=== PATIENT | male | born 1960 | race Caucasian/White ===

== ENCOUNTER 2017-09-28 06:25 | Day surgery (SDC) | payer MEDICARE, MEDICAID ==
[2017-09-25 09:41] VITALS: BMI 32.8
[2017-09-28] MEDS ORDERED: PROPOFOL 20 ML ONE (07:00)
[2017-09-28] MEDS ORDERED: PROPOFOL 200 MG/20 ML VIAL ONE (13:57)
--- NOTE | 2017-09-29 15:18 | OP ---
DATE OF PROCEDURE: 09/28/2017 PREOPERATIVE DIAGNOSIS: Atrial fibrillation. POSTOPERATIVE DIAGNOSIS: Sinus rhythm. PROCEDURE: Successful synchronized cardioversion. DESCRIPTION OF PROCEDURE: Conscious sedation was performed with propofol. Anesthesia was present. The patient underwent successful synchronized cardioversion at 150 followed by 200 joules. IMPRESSION: Successful synchronized cardioversion.
== END 2017-09-28 08:47 | disposition home or self-care (01) ==
LOC: CCL 06:25
PROVIDERS: ATTEND Internal Medicine Cardiovascular Disease
PROC: 5A2204Z Restoration of Cardiac Rhythm, Single (ICD-10-PCS; principal; 2017-09-28)
DX: I48.1 Persistent atrial fibrillation (principal); I10 Essential (primary) hypertension; Z79.899 Other long term (current) drug therapy; Z79.01 Long term (current) use of anticoagulants
CPT/HCPCS: 92960; J2704

== ENCOUNTER 2018-02-16 09:56 | Day surgery (SDC) | payer MEDICARE, MEDICAID ==
[2018-02-15 10:40] VITALS: BMI 32.5
[2018-02-16] MEDS ORDERED: Ketorolac Tromethamine 30 MG/ML VIAL ONE (11:22)
[2018-02-16] MEDS ORDERED: CEFAZOLIN/Water 2 GM/20 ML SYRINGE ONE (11:22)
[2018-02-16 12:04] LABS: #Eosinphils 0.1 thou/uL (0.0-0.7); #Lymphocytes 0.8 thou/uL (1.20-3.40); #Monocytes 0.4 thou/uL (0.11-0.59); #Neutrophils 5.5 thou/uL (1.40-6.50); %Basophils 0.4 % (0.0-1.0); %Eosinophils 1.4 % (0.0-10.0); %Lymphocytes 11.2 % (21.0-51.0); %Monocytes 6.2 % (0.0-10.0); %Neutrophils 80.8 % (42.0-75.0); Hemoglobin 14.1 g/dL (14.0-18.0); Mean Corpuscular HGB CONC 34.7 g/dL (32.0-36.0); Mean Corpuscular Hemoglobin 31.4 pg (27.0-31.0); Mean Corpuscular Volume 90.6 fL (78.0-98.0); Mean Platelet Volume 7.3 fL (7.4-10.4); Platelet Count 159 thou/uL (130-400); RBC Distribution Width 11.6 % (11.5-14.5); Red Blood Cell (RBC) Count 4.49 mill/uL (4.70-6.10); White Blood Cell (WBC) Count 6.8 thou/uL (4.8-10.8)
[2018-02-16 12:13] LABS: Anion Gap 12 mmol/L (10-20); BUN (Urea Nitrogen) 21 mg/dL (8.4-25.7); Calc. Creatinine Clearance 118 mL/min (70-130); Calcium 9.6 mg/dL (7.8-10.44); Carbon Dioxide 27 mmol/L (22-29); Chloride 102 mmol/L (98-107); Estimated GFR-MDRD 80; Glucose 111 mg/dL (70-105); Potassium 4.4 mmol/L (3.5-5.1); Sodium 137 mmol/L (136-145)
[2018-02-16] MEDS ORDERED: Bupivacaine/Epinephrine 0.25% 30 ML VIAL ONE ×2 (13:13→15:32)
[2018-02-16] MEDS ORDERED: Bupivacaine 0.25% HCL 30 ML VIAL ONE (13:13)
[2018-02-16] MEDS ORDERED: Fentanyl 100 MCG/2 ML VIAL ONE (13:28)
--- NOTE | 2018-02-16 17:47 | EKG ---
Test Reason : PREOP Blood Pressure : / mmHG Vent. Rate : 069 BPM Atrial Rate : 069 BPM P-R Int : 172 ms QRS Dur : 098 ms QT Int : 408 ms P-R-T Axes : 072 062 031 degrees QTc Int : 437 ms Normal sinus rhythm Normal ECG No previous ECGs available Confirmed by DR. Clari MORRIS ([id number]) on 02/16/2018 5:47:02 PM Referred By: ZIA Confirmed By:DR. Clari MORRIS
--- NOTE | 2018-02-17 12:48 | OP ---
DATE OF PROCEDURE: 02/16/2018 PREOPERATIVE DIAGNOSIS: Large incarcerated left inguinal hernia with a very large intrascrotal compo nent. POSTOPERATIVE DIAGNOSIS: Large incarcerated left inguinal hernia with a very large intrascrotal comp onent with finding of an incarcerated sliding left inguinal hernia, which incorporated the entirety o f his sigmoid colon within the scrotum. OPERATION PERFORMED: Complex repair of a huge incarcerated sliding left inguinal hernia using an ext ra large mesh patch and plug. SURGEON: Phillip Paz M.D. ANESTHESIA: General endotracheal. INDICATIONS: The patient is a 57-year-old obese white male. He has underlying intellectual disabili ty. It is unknown how long this hernia has been present. He was taken to operating room at this [facility] for repair of the hernia, which I cannot reduce. DESCRIPTION OF OPERATION: Informed consent was obtained. The patient was taken to the operating [facility] where general endotracheal anesthesia was obtained with the patient in supine position. Left groin , scrotum, and genitalia were prepped with ChloraPrep and draped in sterile fashion. Local anestheti c was infiltrated using 0.25% Marcaine with epinephrine and a fairly large oblique left inguinal inci angel was created and dissection was carried through skin and subcutaneous tissue. Dissection was car ried down to the fascia, which was opened parallel to its fibers so as to open the external ring. Th ere was a very large cord with hernia contents protruding through the external ring down into the scr otum. This had clearly been present for a very long time as all tissues were inflamed, thickened, an d adherent to surrounding structures. I carefully dissected down to the hernia sac. Due to the size , I was unable to really dissect around this. I opened the hernia sac transversely. I was able to i dentify the hernia contents, which I then began to reduce out of the scrotum. It then became obvious that this was the entirety of the sigmoid colon with a large loop of colon down within his scrotum. It was densely adherent to all surrounding structures. I had to work to mobilize the sigmoid colon and its mesentery from the spermatic cord contents. I was able to clearly identify the vas deferens and the vascular supply. The testicle reduced out of the scrotum numerous times during the course of the case. After I reduced the adhesions, I was, with significant difficulty, able to eventually red uce the colon back within the peritoneal cavity. At this point, I tried to identify where any remnan t of a hernia sac was in, it was certainly difficult to find any circumferential structure that could be identified and were closed. I mobilized some preperitoneal tissue and again identified the cord structures. It appeared that the hernia had split the vas deferens from the other cord structures qureshi ch that the vas deferens was medial and not really part of the rest of the cord structures. I noneth eless attempted to preserve all cord structures. There was essentially a blowout of the floor of the inguinal canal, and it was challenging to figure out how to repair this. I eventually obtained an extra large mesh plug and secured the apex of this to the apex of preperiton eal tissue that I had used to somewhat close the defect. This was then passed into the preperitoneal space and I secured the plug to surrounding the fascial structures medially, laterally, superiorly, and inferiorly. This was all done with a 2-0 Vicryl suture. I attempted to close the fascia over th e plug medially and laterally due to the size of the defect. I then obtained the mesh patch which was trimmed to appropriate size and placed within the floor of t he inguinal canal. I secured the inferior aspect of this to the shelving edge of the inguinal ligame nt using a running suture of 2-0 Prolene, this was carried out laterally past the internal ring. I s ecured the upper aspect of the mesh to the fascia of the internal oblique with a Prolene suture and t hen the several additional Vicryl sutures to finish secured the mesh in place. The tails were of cou rse approximated around the cord structures laterally. The external oblique aponeurosis was then closed with running suture of 3-0 Vicryl. Remainder of the wound was closed in layers with 3-0 and 4-0 Monocryl and additional local anesthetic was infiltrated during closure. There were no complications. The patient tolerated the procedure well and was take n to recovery room in stable condition. Of note, this operation took over 2 hours due to the complexity of the dissection and repair (in comp arison to its typical 30-minute hernia repair).
== END 2018-02-16 17:22 | disposition home or self-care (01) ==
LOC: SDC 09:56
PROVIDERS: ATTEND Specialist
PROC: 0YU60JZ Supplement Left Inguinal Region with Synthetic Substitute, Open Approach (ICD-10-PCS; principal; 2018-02-16)
DX: K40.30 Unilateral inguinal hernia, with obstruction, without gangrene, not specified as recurrent (principal); I10 Essential (primary) hypertension; I48.91 Unspecified atrial fibrillation; F79 Unspecified intellectual disabilities; E66.9 Obesity, unspecified; Z68.32 Body mass index [BMI] 32.0-32.9, adult; Z79.01 Long term (current) use of anticoagulants; Z79.899 Other long term (current) drug therapy; Z89.411 Acquired absence of right great toe
CPT/HCPCS: 36415; 80048; 85025; 93005; 93010; C1781; J0131; J1885; J3010; S0020

== ENCOUNTER 2018-11-10 05:13 | Outpatient (CLI) | payer MEDICARE, MEDICAID ==
[2018-11-10 11:38] LABS: Hemoglobin 11.2 g/dL (14.0-18.0); Mean Corpuscular HGB CONC 32.4 g/dL (32.0-36.0); Mean Corpuscular Hemoglobin 28.2 pg (27.0-31.0); Mean Corpuscular Volume 86.8 fL (78.0-98.0); Platelet Count 139 thou/uL (130-400); RBC Distribution Width 14.9 % (11.5-14.5); Red Blood Cell (RBC) Count 3.97 mill/uL (4.70-6.10)
[2018-11-10 11:44] LABS: INR-International Normal Ratio 1.3; PTT 36.2 SEC (22.9-36.1); Prothrombin Time 16.3 SEC (12.0-14.7)
[2018-11-10 11:58] LABS: Anion Gap 13 mmol/L (10-20); BUN (Urea Nitrogen) 23 mg/dL (8.4-25.7); Calc. Creatinine Clearance 0 mL/min (70-130); Calcium 9.2 mg/dL (7.8-10.44); Carbon Dioxide 26 mmol/L (22-29); Chloride 107 mmol/L (98-107); Estimated GFR-MDRD 69; Glucose 101 mg/dL (70-105); Potassium 4.5 mmol/L (3.5-5.1); Sodium 141 mmol/L (136-145)
--- NOTE | 2018-11-10 20:29 | EKG ---
Test Reason : Blood Pressure : / mmHG Vent. Rate : 107 BPM Atrial Rate : 098 BPM P-R Int : 000 ms QRS Dur : 078 ms QT Int : 324 ms P-R-T Axes : 000 068 040 degrees QTc Int : 432 ms Atrial fibrillation with rapid ventricular response Abnormal ECG When compared with ECG of 16-FEB-2018 11:08, Atrial fibrillation has replaced Sinus rhythm Vent. rate has increased BY 38 BPM Confirmed by ZURDO ATKINS, SEdelmira ([id number]) on 11/10/2018 8:29:32 PM Referred By: JIM Confirmed By:DR. Bonnie RENNER MD
== END 2018-11-10 05:14 | disposition home or self-care (01) ==
LOC: LABBT 05:13 → EDSTATUS 08:45
PROVIDERS: ATTEND Urology
DX: Z01.818 Encounter for other preprocedural examination (principal); R39.14 Feeling of incomplete bladder emptying; R33.8 Other retention of urine
CPT/HCPCS: 80048; 85027; 85610; 85730; 87077; 87086; 93005; 93010

== ENCOUNTER 2018-11-15 08:04 | Day surgery (SDC) | payer MEDICARE, MEDICAID ==
[2018-11-10 10:46] VITALS: BMI 31.3
[2018-11-15] MEDS ORDERED: Bupivacaine 0.25% HCL 30 ML VIAL ONE (09:09)
[2018-11-15] MEDS ORDERED: cefTRIAXone\\ROCEPHIN 2 GM VIAL ONE (09:26)
[2018-11-15] MEDS ORDERED: Sodium Chloride 0.9% 100 ML ONE (09:26)
[2018-11-15] MEDS ORDERED: Fentanyl 100 MCG/2 ML VIAL ONE (09:37)
--- NOTE | 2018-11-15 15:16 | OP ---
DATE OF PROCEDURE: 11/15/2018 PREOPERATIVE DIAGNOSES: Incomplete emptying, retention, lower urinary tract symptoms. POSTOPERATIVE DIAGNOSES: Incomplete emptying, retention, lower urinary tract symptoms. PROCEDURES PERFORMED: Cystoscopy, placement of suprapubic tube using the Lowsley technique. ANESTHESIA: General with local. ESTIMATED BLOOD LOSS: Minimal. FINDINGS: There were no strictures. There was moderate lateral lobe hypertrophy. There were some small stones in the bladder that removed with a small grasping forceps. There were 1+ trabeculations and catheter-related cystitis to ureteral orifices that were clear. DRAINS PLACED: A 22-Czech Arellano three-way as the suprapubic and 18-Czech 10 mL as a urethral catheter. DESCRIPTION OF PROCEDURE: Obtained written and verbal consent from the patient. After receiving IV antibiotics, he was taken to the operating suite. He was placed in the supine position on the treatment table. PlexiPulses were placed on his lower extremities and turned on. He was given a general anesthetic and oral obturator intubation. He was placed in the dorsal lithotomy position. He was shaved and sterilely prepped and draped. Cystoscopy was performed with a 22-Czech sheath. This was well lubricated, passed under direct vision through the male urethra into the urinary bladder with the help of 30-degree lens of video camera and monitor. The bladder was filled and emptied number of times and pair of flexible graspers were used to remove some small stones. The bladder was again moved with a 30 and the 70-degree lens. The bladder was then filled under about 70 to 80 cm of water pressure until it was completely full and easily palpated. We then infiltrated the skin, two fingerbreadths above the pubic symphysis with a spinal needle and then placed this as we infiltrated through the soft tissues down to the anterior bladder wall, so we could see it coming into the bladder with a 30-degree lens. We then having a good spot jarrett here and made a small skin incision at this site and then removed the cystoscope and passed a well lubricated Lowsley and brought this in underneath the anterior abdominal wall, the site of our spinal needle insertion and cutdown onto this until the typical Lowsley came out through this incision. We then used this to direct 22-Czech Arellano using a couple of silk ties to secure it to the Lowsley, directed it into the bladder. The silk port ends were cut and removed. Balloon was inflated with 30 mL. Cystoscopically, it showed that it was in good position. There was really not much bleeding. It appeared to be draining well. The instruments were removed. A small urethral catheter was placed with 10 mL in the balloon and this drained well also. Both hooked up to individual leg bags. A dressing was placed after we secured the SP tube at the skin site with a 0 silk stitch. He was taken out of dorsal lithotomy position, awakened, extubated, and taken by stretcher to recovery room. Job ID: [id number]
== END 2018-11-15 12:20 | disposition home or self-care (01) ==
LOC: SDC 08:04
PROVIDERS: ATTEND Urology
PROC: 0T9B70Z Drainage of Bladder with Drainage Device, Via Natural or Artificial Opening (ICD-10-PCS; principal; 2018-11-15)
PROC: 0TCB8ZZ Extirpation of Matter from Bladder, Via Natural or Artificial Opening Endoscopic (ICD-10-PCS; 2018-11-15)
DX: N40.1 Benign prostatic hyperplasia with lower urinary tract symptoms (principal); R33.8 Other retention of urine; R39.14 Feeling of incomplete bladder emptying
CPT/HCPCS: J0696; J3010; J3490; S0020

== ENCOUNTER 2019-03-14 10:49 | Emergency (ER) | payer MEDICARE, MEDICAID | END 2019-03-14 12:00 | disposition home or self-care (01) | LOC: ERS 10:49 | DX: T83.031A Leakage of indwelling urethral catheter, initial encounter (principal); R33.9 Retention of urine, unspecified; I48.91 Unspecified atrial fibrillation; F41.9 Anxiety disorder, unspecified | CPT/HCPCS: 51702; 87086 ==

== ENCOUNTER 2020-03-15 17:20 | Emergency (ER) | payer MEDICARE, MEDICAID ==
[2020-03-15] MEDS ORDERED: Clotrimazole 1% Cream 15 GM TUBE TOP SCH (18:30)
[2020-03-15 19:32] LABS: Bacteria/HPF 4+ HPF (None Seen); Bilirubin Negative (Negative); Blood, Urine 3+ (Negative); Clarity Turbid (Clear); Glucose, Urine (Dipstick) 100 mg/dL (Negative); Ketone, Urine Negative (Negative); Leukocyte 500 Leu/uL (Negative); Nitrite Negative (Negative); Protein, Urine (Dipstick) 300 mg/dL (Neg-Trace); RBC/HPF Greater than 50 HPF (0-3); Specific Gravity, Urine 1.026 (1.002-1.036); Squamous Epithelial 0-3 HPF (0-3); Urobilinogen Normal mg/dL (Less than 2); WBC/HPF Greater than 50 HPF (0-3)
[2020-03-15] MEDS ORDERED: Ciprofloxacin 500 MG TAB ONE (19:33)
== END 2020-03-15 21:18 | disposition home or self-care (01) ==
LOC: ERS 17:20
DX: T83.091A Other mechanical complication of indwelling urethral catheter, initial encounter (principal); N30.00 Acute cystitis without hematuria; K21.9 Gastro-esophageal reflux disease without esophagitis; N40.0 Benign prostatic hyperplasia without lower urinary tract symptoms; E78.00 Pure hypercholesterolemia, unspecified; E78.5 Hyperlipidemia, unspecified; I10 Essential (primary) hypertension; I48.91 Unspecified atrial fibrillation; F41.9 Anxiety disorder, unspecified; Z79.01 Long term (current) use of anticoagulants; Z79.899 Other long term (current) drug therapy
CPT/HCPCS: 51702; 81003; 81015; 94760

== ENCOUNTER 2021-04-09 12:01 | Outpatient (CLI) | payer MEDICARE, MEDICAID | END 2021-04-09 12:02 | disposition home or self-care (01) | LOC: RAD 12:01 | PROVIDERS: ATTEND Nurse Practitioner | DX: M25.561 Pain in right knee (principal); M17.11 Unilateral primary osteoarthritis, right knee; Z12.5 Encounter for screening for malignant neoplasm of prostate; E78.5 Hyperlipidemia, unspecified; N40.0 Benign prostatic hyperplasia without lower urinary tract symptoms; I48.91 Unspecified atrial fibrillation | CPT/HCPCS: 73562; 80053; 80061; 84550; 85025; G0103; 36415 ==

== ENCOUNTER 2021-07-15 13:00 | Inpatient (IN) | payer MEDICARE, MEDICAID ==
[2021-07-15] MEDS ORDERED: hydrALAZINE 20 MG/ML VIAL SLOW IVP PRN (13:33)
[2021-07-15] MEDS ORDERED: Ondansetron PF 4 MG/2 ML Vial IVP PRN (13:33)
[2021-07-15] MEDS ORDERED: Promethazine HCl 25 MG/ML VIAL IM PRN (13:33)
[2021-07-15] MEDS ORDERED: hydrOXYzine 25 MG TAB PO PRN (13:36)
[2021-07-15] MEDS ORDERED: Morphine 4 MG/ML VIAL SLOW IVP PRN (13:39)
[2021-07-15] MEDS ORDERED: Furosemide 20 MG/2 ML VIAL SLOW IVP SCH (13:45)
[2021-07-15 14:10] LABS: Hemoglobin 10.7 g/dL (14.0-18.0); Mean Corpuscular HGB CONC 32.6 g/dL (32.0-36.0); Mean Corpuscular Hemoglobin 27.4 pg (27.0-31.0); Mean Corpuscular Volume 84.1 fL (78.0-98.0); Mean Platelet Volume 6.8 fL (7.4-10.4); Platelet Count 146 thou/uL (130-400); RBC Distribution Width 15.6 % (11.5-14.5); Red Blood Cell (RBC) Count 3.91 mill/uL (4.70-6.10)
[2021-07-15 14:19] LABS: Prothrombin Time 23.1 sec (12.0-14.7)
[2021-07-15 14:20] LABS: PTT 60.3 sec (22.9-36.1)
[2021-07-15 14:24] LABS: Anisocytosis SLIGHT = 6-15 cells (100X) (0-5/hpf); Band 2 % (5-11); Lymphocytes 9 % (21-51); MDiff Complete? YES; Monocytes 11 % (0-10); Neutrophil 78 % (42-75); Ovalocytes SLIGHT = 2-5 cells (100X) (0-1/hpf); Platelet Morphology Comment Appears Adequate; Polychromasia SLIGHT = 2-3 cells (100X) (0-2/hpf)
[2021-07-15] MEDS ORDERED: ceFAZolin 2 GM/Dextrose 50 ML 2 GM in Premix Bag 1 BAG IVPB SCH (14:30)
[2021-07-15 14:39] LABS: Anion Gap 13 mmol/L (10-20); BUN (Urea Nitrogen) 19 mg/dL (8.4-25.7); Calc. Creatinine Clearance 0 mL/min (70-130); Calcium 8.8 mg/dL (7.8-10.44); Carbon Dioxide 25 mmol/L (22-29); Chloride 102 mmol/L (98-107); Glucose 103 mg/dL (70-105); Phosphorus 3.1 mg/dL (2.3-4.7); Potassium 4.1 mmol/L (3.5-5.1); Sodium 136 mmol/L (136-145)
[2021-07-15 16:59] VITALS: BMI 36.1
[2021-07-15] MEDS ORDERED: FLU VACC QS2021-22(6MOS UP)/PF 60 MCG/0.5 ML SYRINGE IM ONE (17:30)
[2021-07-15] MEDS ORDERED: Metoprolol Tartrate 50 MG TAB PO SCH (21:00)
[2021-07-15] MEDS: Famotidine 20 MG TAB PO SCH (21:05)
[2021-07-15] MEDS: Finasteride 5 MG TAB PO SCH (21:06)
[2021-07-15] MEDS: Simvastatin 10 MG TAB PO SCH (21:07)
[2021-07-16 06:17] LABS: Anion Gap 13 mmol/L (10-20); BUN (Urea Nitrogen) 18 mg/dL (8.4-25.7); Calc. Creatinine Clearance 119 mL/min (70-130); Calcium 8.7 mg/dL (7.8-10.44); Carbon Dioxide 23 mmol/L (22-29); Chloride 102 mmol/L (98-107); Glucose 95 mg/dL (70-105); Magnesium 1.8 mg/dL (1.6-2.6); Phosphorus 2.8 mg/dL (2.3-4.7); Potassium 3.7 mmol/L (3.5-5.1); Sodium 134 mmol/L (136-145)
[2021-07-16 06:32] LABS: Band 2 % (5-11); Lymphocytes 13 % (21-51); MDiff Complete? YES; Mean Corpuscular HGB CONC 32.7 g/dL (32.0-36.0); Mean Corpuscular Hemoglobin 27.3 pg (27.0-31.0); Mean Corpuscular Volume 83.4 fL (78.0-98.0); Monocytes 13 % (0-10); Neutrophil 72 % (42-75); Platelet Count 141 thou/uL (130-400); Platelet Morphology Comment Appears Adequate; RBC Distribution Width 15.6 % (11.5-14.5); RBC Morphology Normal; Red Blood Cell (RBC) Count 3.68 mill/uL (4.70-6.10)
[2021-07-16] MEDS ORDERED: Magnesium 2 GM/50 ML 2 GM in Premix Bag 1 BAG IVPB SCH (08:00)
[2021-07-16] MEDS: Metoprolol Tartrate 50 MG TAB PO SCH ×2 (08:01→20:32)
[2021-07-16] MEDS: Famotidine 20 MG TAB PO SCH ×2 (08:05→20:32)
[2021-07-16] MEDS: MULTIVIT/IRON SULF/FOLIC ACID 1 EACH TAB PO SCH (08:05)
[2021-07-16] MEDS ORDERED: Potassium Phosphate 15 MMOL in Sodium Chloride 0.9% 250 ML 250 ML IVPB SCH (09:00)
[2021-07-16] MEDS ORDERED: Multivitamins CHEW w/Iron Tablet PO SCH (09:00)
[2021-07-16 10:38] LABS: INR-International Normal Ratio 1.5; PTT 52.6 sec (22.9-36.1); Prothrombin Time 18.3 sec (12.0-14.7)
[2021-07-16] MEDS: Simvastatin 10 MG TAB PO SCH (20:32)
[2021-07-16] MEDS: Finasteride 5 MG TAB PO SCH (20:32)
[2021-07-17 06:31] LABS: Mean Corpuscular HGB CONC 31.6 g/dL (32.0-36.0); Mean Corpuscular Hemoglobin 26.8 pg (27.0-31.0); Mean Corpuscular Volume 84.7 fL (78.0-98.0); Platelet Count 162 thou/uL (130-400); RBC Distribution Width 15.6 % (11.5-14.5); Red Blood Cell (RBC) Count 3.75 mill/uL (4.70-6.10)
[2021-07-17 06:51] LABS: Anion Gap 11 mmol/L (10-20); BUN (Urea Nitrogen) 16 mg/dL (8.4-25.7); Band 7 % (5-11); Calc. Creatinine Clearance 121 mL/min (70-130); Calcium 8.8 mg/dL (7.8-10.44); Carbon Dioxide 27 mmol/L (22-29); Chloride 101 mmol/L (98-107); Glucose 98 mg/dL (70-105); Hypochromia SLIGHT = 6-15 cells (100X) (0-5/hpf); Lymphocytes 12 % (21-51); MDiff Complete? YES; Magnesium 2.1 mg/dL (1.6-2.6); Monocytes 14 % (0-10); Neutrophil 67 % (42-75); Phosphorus 3.3 mg/dL (2.3-4.7); Platelet Morphology Comment Appears Adequate; Potassium 4.2 mmol/L (3.5-5.1); Sodium 135 mmol/L (136-145)
[2021-07-17] MEDS ORDERED: PHOS-NAK 1 PKT PACK PO SCH (07:15)
[2021-07-17] MEDS ORDERED: traMADol HCl 50 MG TAB PO PRN ×2 (07:15)
[2021-07-17] MEDS: Acetaminophen 500 MG TAB PO SCH ×3 (09:23→18:39)
[2021-07-17] MEDS: MULTIVIT/IRON SULF/FOLIC ACID 1 EACH TAB PO SCH (09:24)
[2021-07-17] MEDS: Polyethylene Glycol 3350 17 GM Packet PO SCH (09:24)
[2021-07-17] MEDS: Senokot S 8.6-50 MG TAB PO SCH ×2 (09:24→20:48)
[2021-07-17] MEDS: Methenamine Hippurate 1 GM TAB PO SCH ×2 (09:25→20:48)
[2021-07-17] MEDS: Digoxin 0.125 MG TAB PO SCH (09:32)
[2021-07-17] MEDS ORDERED: Midazolam HCl 2 mg/2 ml Vial ONE (13:04)
[2021-07-17] MEDS ORDERED: Fentanyl 100 MCG/2 ML VIAL ONE (13:04)
[2021-07-17] MEDS ORDERED: ceFAZolin 2 GM/Dextrose 50 ML IVPB ONE (13:10)
[2021-07-17] MEDS ORDERED: Famotidine/PF 20 mg/2ml Vial ONE (13:22)
[2021-07-17] MEDS ORDERED: PROPOFOL 200 MG/20 ML VIAL ONE (13:35)
[2021-07-17] MEDS ORDERED: Glycopyrrolate 0.2 MG/ML 5 ML SYRINGE ONE (13:35)
[2021-07-17] MEDS ORDERED: Succinylcholine 200 MG/10 ml SYRINGE FS ONE (13:35)
[2021-07-17] MEDS ORDERED: Dexamethasone 20 MG/5 ML VIAL ONE (13:35)
[2021-07-17] MEDS ORDERED: Ondansetron PF 4 MG/2 ML Vial ONE (13:35)
[2021-07-17] MEDS ORDERED: Lidocaine 1% PF 5 ML VIAL ONE (13:35)
[2021-07-17] MEDS ORDERED: PHENYLEPHRINE-NS 100 MCG/ML 10 ML SYRINGE ONE (13:35)
[2021-07-17] MEDS ORDERED: Rocuronium Bromide 10 MG/ML (10ML VIAL) ONE (13:35)
[2021-07-17] MEDS ORDERED: HYDROmorphone 2 MG/ML VIAL ONE (14:46)
[2021-07-17] MEDS: Cyclobenzaprine 10 MG TAB PO PRN (20:48)
[2021-07-17] MEDS: Simvastatin 10 MG TAB PO SCH (20:48)
[2021-07-17] MEDS: Finasteride 5 MG TAB PO SCH (20:48)
[2021-07-17] MEDS: FLUoxetine HCl 20 MG CAP PO SCH (20:48)
[2021-07-17] MEDS: Doxazosin Mesylate 4 MG TAB PO SCH (20:49)
[2021-07-17] MEDS: CEFAZOLIN 2 GM, Admixture Fee 1 EACH in Sodium Chloride 0.9% 100 ML IVPB SCH (21:34)
[2021-07-18] MEDS: Acetaminophen 500 MG TAB PO SCH ×4 (00:56→19:49)
[2021-07-18 05:18] LABS: #Lymphocytes 0.6 thou/uL (1.20-3.40); #Monocytes 1.1 thou/uL (0.11-0.59); #Neutrophils 7.3 thou/uL (1.40-6.50); %Eosinophils 0.4 % (0.0-10.0); %Monocytes 12.3 % (0.0-10.0); %Neutrophils 80.3 % (42.0-75.0); Hemoglobin 10.1 g/dL (14.0-18.0); Mean Corpuscular HGB CONC 32.8 g/dL (32.0-36.0); Mean Corpuscular Hemoglobin 27.5 pg (27.0-31.0); Mean Corpuscular Volume 83.8 fL (78.0-98.0); Platelet Count 185 thou/uL (130-400); RBC Distribution Width 15.4 % (11.5-14.5); Red Blood Cell (RBC) Count 3.65 mill/uL (4.70-6.10); White Blood Cell (WBC) Count 9.1 thou/uL (4.8-10.8)
[2021-07-18] MEDS: CEFAZOLIN 2 GM, Admixture Fee 1 EACH in Sodium Chloride 0.9% 100 ML IVPB SCH ×3 (05:21→21:36)
[2021-07-18 05:48] LABS: Anion Gap 10 mmol/L (10-20); BUN (Urea Nitrogen) 19 mg/dL (8.4-25.7); Calc. Creatinine Clearance 104 mL/min (70-130); Calcium 8.8 mg/dL (7.8-10.44); Carbon Dioxide 28 mmol/L (22-29); Chloride 101 mmol/L (98-107); Glucose 101 mg/dL (70-105); Magnesium 1.9 mg/dL (1.6-2.6); Potassium 4.8 mmol/L (3.5-5.1); Sodium 134 mmol/L (136-145)
[2021-07-18] MEDS: Polyethylene Glycol 3350 17 GM Packet PO SCH (08:44)
[2021-07-18] MEDS: Senokot S 8.6-50 MG TAB PO SCH ×2 (08:47→19:50)
[2021-07-18] MEDS: Furosemide 20 MG TAB PO SCH (08:48)
[2021-07-18] MEDS: Methenamine Hippurate 1 GM TAB PO SCH ×2 (08:50→19:52)
[2021-07-18] MEDS: Digoxin 0.125 MG TAB PO SCH (08:54)
[2021-07-18] MEDS: MULTIVIT/IRON SULF/FOLIC ACID 1 EACH TAB PO SCH (08:59)
[2021-07-18] MEDS: Finasteride 5 MG TAB PO SCH (19:51)
[2021-07-18] MEDS: Doxazosin Mesylate 4 MG TAB PO SCH (19:51)
[2021-07-18] MEDS: FLUoxetine HCl 20 MG CAP PO SCH (19:51)
[2021-07-18] MEDS: Simvastatin 10 MG TAB PO SCH (19:51)
[2021-07-18] MEDS: Cyclobenzaprine 10 MG TAB PO PRN (19:51)
[2021-07-18] MEDS ORDERED: Rivaroxaban 10 MG TAB PO SCH (21:00)
[2021-07-19] MEDS: Acetaminophen 500 MG TAB PO SCH ×4 (00:22→18:42)
[2021-07-19 05:47] LABS: Anion Gap 13 mmol/L (10-20); BUN (Urea Nitrogen) 23 mg/dL (8.4-25.7); Calc. Creatinine Clearance 96 mL/min (70-130); Calcium 8.8 mg/dL (7.8-10.44); Carbon Dioxide 26 mmol/L (22-29); Chloride 101 mmol/L (98-107); Glucose 95 mg/dL (70-105); Magnesium 1.8 mg/dL (1.6-2.6); Phosphorus 3.1 mg/dL (2.3-4.7); Sodium 136 mmol/L (136-145)
[2021-07-19] MEDS: CEFAZOLIN 2 GM, Admixture Fee 1 EACH in Sodium Chloride 0.9% 100 ML IVPB SCH ×2 (05:58→14:16)
[2021-07-19 06:52] LABS: #Eosinphils 0.2 thou/uL (0.0-0.7); #Monocytes 0.9 thou/uL (0.11-0.59); #Neutrophils 5.4 thou/uL (1.40-6.50); %Basophils 0.1 % (0.0-1.0); %Eosinophils 2.1 % (0.0-10.0); %Lymphocytes 13.5 % (21.0-51.0); %Monocytes 11.9 % (0.0-10.0); %Neutrophils 72.3 % (42.0-75.0); Hemoglobin 10.6 g/dL (14.0-18.0); Mean Corpuscular HGB CONC 31.2 g/dL (32.0-36.0); Mean Corpuscular Hemoglobin 27.2 pg (27.0-31.0); Mean Corpuscular Volume 87.1 fL (78.0-98.0); Mean Platelet Volume 6.8 fL (7.4-10.4); Platelet Count 205 thou/uL (130-400); RBC Distribution Width 15.5 % (11.5-14.5); Red Blood Cell (RBC) Count 3.89 mill/uL (4.70-6.10); White Blood Cell (WBC) Count 7.4 thou/uL (4.8-10.8)
[2021-07-19] MEDS: Methenamine Hippurate 1 GM TAB PO SCH (09:54)
[2021-07-19] MEDS: Senokot S 8.6-50 MG TAB PO SCH (09:54)
[2021-07-19] MEDS: MULTIVIT/IRON SULF/FOLIC ACID 1 EACH TAB PO SCH (09:54)
[2021-07-19] MEDS: Digoxin 0.125 MG TAB PO SCH (09:55)
[2021-07-19] MEDS: Furosemide 20 MG TAB PO SCH (09:56)
[2021-07-19] MEDS: Polyethylene Glycol 3350 17 GM Packet PO SCH (09:56)
[2021-07-19 16:00] VITALS: BP 121/86; TEMP 97.9
== END 2021-07-19 08:30 | DRG 494 ==
LOC: SURG A 13:29
PROVIDERS: ADMIT Surgery; ATTEND Surgery
PROC: 0QSG04Z Reposition Right Tibia with Internal Fixation Device, Open Approach (ICD-10-PCS; principal; 2021-07-17)
DX: S82.301A Unspecified fracture of lower end of right tibia, initial encounter for closed fracture (principal); S82.831A Other fracture of upper and lower end of right fibula, initial encounter for closed fracture; I50.9 Heart failure, unspecified; K21.9 Gastro-esophageal reflux disease without esophagitis; N40.0 Benign prostatic hyperplasia without lower urinary tract symptoms; E78.00 Pure hypercholesterolemia, unspecified; I11.0 Hypertensive heart disease with heart failure; I48.91 Unspecified atrial fibrillation; W19.XXXA Unspecified fall, initial encounter; Y92.9 Unspecified place or not applicable; Z79.899 Other long term (current) drug therapy
CPT/HCPCS: 36415; 76000; 80048; 83735; 83880; 84100; 85007; 85025; 85027; 85610; 85730; 86850; 86900; 86901; C1713; J0690; J1100; J1170; J1940; J2250; J2405; J2704; J3010; J3475; J3490; J7050; S0028